=== PATIENT | female | born 1990 | race Two or more races ===

== ENCOUNTER 2017-03-16 20:03 | Emergency (ER) | payer SELFPAY ==
[~2017-03-16] VITALS: Ht 172.7 cm; Wt 107.0 kg
[2017-03-16] MEDS ORDERED: SODIUM CHLORIDE 0.9% 1,000 ML IV ONE (20:26)
[2017-03-16 20:45] LABS: BASOPHILS % 0.5 % (0.0-2.0); EOSINOPHILS % 2.4 % (0.0-5.0); HEMATOCRIT. 39.7 % (36.0-48.0); HEMOGLOBIN. 13.5 g/dL (12.0-16.0); LYMPHOCYTES % 15.4 % (20.0-50.0); MEAN CORPUSCULAR HEMOGLOBIN 30.1 pg (28.0-32.0); MEAN CORPUSCULAR VOLUME 88.9 fL (81.0-99.0); MEAN PLATELET VOLUME 7.7 fl (7.4-10.4); MONOCYTES % 6.7 % (2.0-8.0); PLATELET 233 x1000/uL (130-400); RED BLOOD CELL COUNT 4.47 mill/uL (4.2-5.4); RED CELL DISTRIBUTION WIDTH 13.3 % (11.6-14.6)
[2017-03-16 20:49] LABS: CHLORIDE 106 mEq/L (98-107)
[2017-03-16 20:52] LABS: INR 0.9; PROTHROMBIN TIME 9.7 sec (9.4-11.6)
[2017-03-16 20:57] LABS: CARBON DIOXIDE 26 mEq/L (21-32); CREATINE KINASE 68 IU/L (26-192); ETHANOL BLOOD < 10 mg/dL
[2017-03-16 21:03] LABS: HCG SCREEN NEGATIVE
[2017-03-16 21:08] LABS: AMMONIA 49 uMol/L (<32)
[2017-03-17 00:20] VITALS: BP 138/79
== END 2017-03-17 00:26 | disposition home or self-care (01) ==
LOC: ER 20:03
DX: R41.82 Altered mental status, unspecified (principal); T65.91XA Toxic effect of unspecified substance, accidental (unintentional), initial encounter; Y92.89 Other specified places as the place of occurrence of the external cause
CPT/HCPCS: 36415; 70450; 80053; 80307; 80329; 82140; 82550; 84443; 84703; 85025; 85610; 93005; 96360; 96361; 99285; G0482; J7030; Z7610